=== PATIENT | male | born 1990 ===

== ENCOUNTER 2023-08-28 11:25 | Emergency (ER) | payer MEDICAID ==
[~2023-08-28] VITALS: Ht 165 cm; Wt 69.0 kg
[2023-08-28 11:44] VITALS: BP 117/76; TEMP 99.4
[2023-08-28] MEDS ORDERED: Ibuprofen 400 MG TAB PO ONE (13:15)
[2023-08-28 14:29] VITALS: PULSE 76
== END 2023-08-28 14:29 | disposition home or self-care (01) ==
LOC: COL.ER 11:25
DX: J06.9 Acute upper respiratory infection, unspecified (principal)